=== PATIENT | male | born 1960 | race Caucasian/White ===

== ENCOUNTER 2021-12-23 11:10 | Emergency (ER) | payer MEDICAID, OTHER ==
[~2021-12-23] VITALS: Ht 175 cm; Wt 90.0 kg
[2021-12-23 11:25] VITALS: BP 148/99
--- NOTE | 2021-12-23 11:33 | ED Upper Extremity ---
General Chief Complaint: Upper Extremity Stated Complaint: HAND PAIN History of Present Illness Date Seen by Provider: Dec 23, 2021 Time Seen by Provider: 11:29 Initial Comments 61-year-old male presents with hand pain. Reports that recently he got a splinter in the back of his hand and about 5 days ago it seemed like it was pretty infected, it was swollen and has some drainage. However there is none today.. Reports that today it feels swollen and tender to move. He has a significant mount of pain however over the palmar/volar aspect of his wrist marked consistent with a carpal tunnel. He denies any known injury. He does do a lot of physical work. There is no active draining or erythema of the hand. Allergies and Home Medications Allergies Coded Allergies: codeine (Verified Allergy, Unknown, 12/23/21) Patient Home Medication List Home Medication List Reviewed: Yes Review of Systems Constitutional: No chills, No fever Respiratory: no symptoms reported Cardiovascular: no symptoms reported Gastrointestinal: see HPI Genitourinary: no symptoms reported Musculoskeletal: see HPI Skin: see HPI Psychiatric/Neurological: No Symptoms Reported Past [id number]-Bfxhvy Hx Patient Social History Tobacco Use?: Yes Tobacco type used: Cigarettes Smoking Status: Current Everyday Smoker Use of E-Cig and/or Vaping dev: No Substance use?: No Alcohol Use?: Yes Alcohol type: Beer Alcohol Frequency: Several times a month Physical Exam Vital Signs Vital Signs - First Documented 12/23/21 11:25 Temp 35.6 Pulse 73 Resp 16 B/P (MAP) 148/99 (115) Pulse Ox 95 Capillary Refill : Height, Weight, BMI Height: '" Weight: lbs. oz. kg; BMI Method: General Appearance: WD/WN, no apparent distress Cardiovascular: normal peripheral pulses Respiratory: lungs clear, normal breath sounds Shoulder: normal inspection Elbow/Forearm: normal inspection, non-tender Wrist: Yes soft tissue tenderness (Positive Tinel's, positive phalen ) Hand: Right, soft tissue tenderness, stiffness Neurologic/Psychiatric: alert, normal mood/affect, oriented x 3 (very mild erythema right hand ) Progress/Results/Core Measures Results/Orders My Orders Orders - MARTIN,OMKAR L DO Dipht,Pertuss(Acell),Tet Adult (Boostrix (12/23/21 11:45) Ketorolac Injection (Toradol Injection) (12/23/21 11:43) Ceftriaxone (Rocephin) (12/23/21 11:45) Lidocaine 1% Inj 20 Ml (Xylocaine 1% Inj (12/23/21 11:45) Vital Signs/I&O 12/23/21 11:25 Temp 35.6 Pulse 73 Resp 16 B/P (MAP) 148/99 (115) Pulse Ox 95 Progress Progress Note : Progress Note Patient symptoms are very consistent with carpal tunnel syndrome. Patient is however concerned about potential infection following a splinter. There is no obvious significant abscess or cellulitis however due to his complaint of a recent draining abscess and some tenderness and swelling after that I will treat him for underlying potential cellulitis. I also discussed with him that he likely has carpal tunnel syndrome recommended supportive care. Patient stable and discharged Departure Impression Primary Impression: Cellulitis of right hand Additional Impression: Carpal tunnel syndrome, right upper limb Disposition: 01 HOME, SELF-CARE Condition: Stable Departure-Patient Inst. Patient Instructions: Carpal Tunnel Exercises, Cellulitis (Skin Infection), Adult ED, Carpal Tunnel Syndrome (DC) Add. Discharge Instructions: Please use a Velcro wrist splint on your right hand Follow-up with your primary care provider if symptoms not improving in 2 to 3 days. All discharge instructions reviewed with patient and/or family. Voiced understanding. Scripts Sulfamethoxazole/Trimethoprim (Bactrim Ds Tablet) 1 Each Tablet 1 EACH PO BID, #14 TAB Prov: OMKAR MARTIN DO 12/23/21 Naproxen (Naprosyn) 500 Mg Tablet 500 MG PO BID, #30 TAB 0 Refills Prov: OMKAR MARTIN DO 12/23/21 OMKAR MARTIN DO Dec 23, 2021 11:33
[2021-12-23] MEDS ORDERED: KETOROLAC 30 MG/ML VIAL IM STA (11:43)
[2021-12-23] MEDS ORDERED: LIDOCAINE 1% INJ 20 ML VIAL INJ ONE (11:45)
[2021-12-23] MEDS ORDERED: cefTRIAXone 1,000 MG VIAL IM ONE (11:45)
[2021-12-23] MEDS ORDERED: TETANUS,DIPTH,PERTUSS P/F (BOOSTRIX) 0.5 ML VIAL IM ONE (11:45)
[2021-12-23] MEDS ORDERED: NAPR-1071 PO (11:52)
[2021-12-23] MEDS ORDERED: SULF1TAB38 PO (11:53)
== END 2021-12-23 12:15 | disposition home or self-care (01) ==
LOC: ER FS 11:13
DX: L03.113 Cellulitis of right upper limb (principal); G56.01 Carpal tunnel syndrome, right upper limb; F17.210 Nicotine dependence, cigarettes, uncomplicated; Z23 Encounter for immunization
CPT/HCPCS: 90715; 99284